=== PATIENT | male | born 1970 | race Two or more races ===

== ENCOUNTER 2018-07-08 22:10 | Emergency (ER) | payer SELFPAY ==
[2018-07-09] MEDS ORDERED: KETOROLAC TROMETHAMINE 60 MG/2 ML SDV IM ONE (00:10)
--- NOTE | 2018-07-09 01:05 | RADIOLOGY REPORT (SQ) ---
EXAM DESCRIPTION: US SCROTUM COMPLETED DATE/TME: 07/08/2018 22:53 CLINICAL HISTORY: 47 years Male, testicular pain Comparison: None. LIMITATIONS: FINDINGS: 5.7 x 5.2 x 2.7 cm enlarged right epididymis with increased vascularity and heterogeneity. Moderate right hydrocele. Else, 5.2-cm right testis, 5.1-cm left testis, left epididymis, and scrotal structures appear otherwise unremarkable in size, shape, echotexture, and vascularity. No evidence of testicular mass. No evidence of testicular torsion IMPRESSION: 1. Right epididymitis. Moderate right hydrocele. Differential etiologies include infectious, inflammatory, and neoplastic processes. 2. Normal testes.
[2018-07-09] MEDS ORDERED: NORMAL SALINE 1000 ML 1,000 ML IV ONE (01:40)
[2018-07-09] MEDS ORDERED: ONDANSETRON HCL INJ/PF 4 MG/2 ML SDV IV ONE (01:40)
[2018-07-09] MEDS ORDERED: CIPROFLOXACIN HCL 500 MG TABLET PO ONE (01:42)
[2018-07-09] MEDS ORDERED: CEFTRIAXONE INJ 1000 MG VIAL IV ONE (01:48)
[2018-07-09] MEDS ORDERED: ONDANSETRON ODT 4 MG TAB (6 TAB/ER DISP) PO PRN (01:48)
[2018-07-09] MEDS ORDERED: HYDROCODONE/ACETAMINOPHEN 5-325 MG (6 TAB/ER DISP) PO PRN (01:48)
--- NOTE | 2018-07-09 01:48 | ER Document Report ---
ED General - General Chief Complaint: Testicular Pain Stated Complaint: TESTICULAR PAIN Time Seen by Provider: 07/08/18 23:17 Notes: Patient is a 47-year-old male with a past medical history of asthma, prior history of right-sided epididymitis 2 years ago who presents complaining of 2 weeks of right-sided testicular pain that became acutely much worse in the last several hours. Describes it as a severe, throbbing, constant pain to the right testicle that radiates into the right lower abdomen. Notes associated nausea without vomiting. Nothing improves the pain. Touching the area or walking worsens the pain. No fever or constitutional symptoms. Denies dysuria. Denies risks for sexually transmitted infections. Has not seen his primary care doctor regarding today's concerns. TRAVEL OUTSIDE OF THE [place] IN LAST 30 DAYS: No - Related Data Allergies/Adverse Reactions: No Known Allergies Allergy (Verified 07/09/18 02:38) Past Medical History - General Information source: Patient - Social History Smoking Status: Current Every Day Smoker Frequency of alcohol use: None Drug Abuse: None Lives with: Spouse/Significant other Family History: Reviewed & Not Pertinent Review of Systems - Review of Systems Notes: Constitutional: Negative for fever. HENT: Negative for sore throat. Eyes: Negative for visual changes. Cardiovascular: Negative for chest pain. Respiratory: Negative for shortness of breath. Gastrointestinal: Negative for abdominal pain, vomiting or diarrhea. Genitourinary: Positive for right testicular pain Musculoskeletal: Negative for back pain. Skin: Negative for rash. Neurological: Negative for headaches, weakness or numbness. 10 point ROS negative except as marked above and in HPI. Physical Exam - Vital signs Vitals: Temp Pulse Resp BP Pulse Ox 98.4 F 84 16 116/69 100 07/08/18 22:17 07/08/18 22:17 07/08/18 22:17 07/08/18 22:17 07/08/18 22:17 Interpretation: Normal Notes: PHYSICAL EXAMINATION: GENERAL: Appears quite uncomfortable HEAD: Atraumatic, normocephalic. EYES: Pupils equal round and reactive to light, extraocular movements intact, sclera anicteric, conjunctiva are normal. ENT: nares patent, oropharynx clear without exudates. Moderately dry mucous membranes. NECK: Normal range of motion, supple without lymphadenopathy LUNGS: Breath sounds clear to auscultation bilaterally and equal. No wheezes rales or rhonchi. HEART: Regular rate and rhythm without murmurs ABDOMEN: Soft, nontender, normoactive bowel sounds. No guarding, no rebound. No masses appreciated. : There is firmness and swelling to the right epididymis. Slight induration of the right scrotum. Cremasteric reflex is intact. EXTREMITIES: Normal range of motion, no pitting or edema. No cyanosis. NEUROLOGICAL: No focal neurological deficits. Moves all extremities spontaneously and on command. PSYCH: Moderately anxious SKIN: Warm, Dry, normal turgor, no rashes or lesions noted. Course - Re-evaluation Re-evalutation: 07/09/18 01:46 Patient presents with signs and symptoms as well as an ultrasound consistent with acute epididymitis. The patient has a visibly indurated and painful epididymis on the right side. Testicular ultrasound without evidence of torsion on the right, does confirm findings of epididymitis. Abdominal exam otherwise benign. Patient did have minimal pain control with intramuscular Toradol. He has also been unable to urinate. Declined catheterization. Will place IV, give IV fluids, morphine, Zofran and wait to obtain urine specimen. Patient will be started on ciprofloxacin for 2 weeks. A dose of ceftriaxone has also been administered. At this time will discharge with return precautions and follow-up recommendations. Verbal discharge instructions given a the bedside and opportunity for questions given. Medication warnings reviewed. Patient is in agreement with this plan and has verbalized understanding of return precautions and the need for urology follow-up in the next 24-72 hours. - Vital Signs Vital signs: Temp Pulse Resp BP Pulse Ox 98.4 F 84 16 116/69 100 07/08/18 22:17 07/08/18 22:17 07/08/18 22:17 07/08/18 22:17 07/08/18 22:17 - Diagnostic Test Radiology reviewed: Reports reviewed Discharge - Discharge Clinical Impression: Epididymitis, right, Right testicular pain, Nausea Condition: Good Disposition: HOME, SELF-CARE Additional Instructions: You have been seen today for pain in your testicle. Your pain is coming from inflammation and possibly an infection of your epididymis which is a structure that sits on top of your testicle. Your urine is being cultured to detect any evidence of infection. Please take the antibiotics as prescribed until completed. For your pain: Take ibuprofen 600 mg and acetaminophen 650 mg every 6 hours together as needed for pain. Take 1 of the Norman tablets with which you have been sent home every 4 hours for pain not controlled by the above regimen. You may also apply a cool compress to the affected area. Return to the emergency department immediately if you have worsening of your pain, develop a fever of greater than 100.4 F, become unable to urinate, has spreading redness on your thigh or pelvic region, pass out, or have any other new or worrisome symptoms. Please follow-up with urology within the next 2-3 days. Prescriptions: Ciprofloxacin HCl [Cipro 500 mg Tablet] 500 mg PO BID #20 tablet
[2018-07-09] MEDS: MORPHINE SULFATE 10 MG/ML INJ IV PRN ×2 (02:15→03:45)
[2018-07-09] MEDS ORDERED: ONDANSETRON HCL INJ/PF 4 MG/2 ML SDV ONE (03:43)
[2018-07-09 03:45] LABS: APPEARANCE,URINE TURBID; BILIRUBIN,URINE SMALL (NEGATIVE); COLOR,URINE YELLOW; GLUCOSE, URINE NEGATIVE (NEGATIVE); KETONES,URINE TRACE mg/dL (NEGATIVE); LEUKOCYTE ESTERASE,URINE TRACE (NEGATIVE); NITRITE,URINE NEGATIVE (NEGATIVE); PROTEIN,URINE 30 mg/dL (NEGATIVE); URINE SPECIFIC GRAVITY 1.034
[2018-07-09 04:15] VITALS: BP 110/67
== END 2018-07-09 04:15 | disposition home or self-care (01) ==
LOC: ER 22:10
DX: N45.1 Epididymitis (principal); N50.811 Right testicular pain; R11.0 Nausea; J45.909 Unspecified asthma, uncomplicated; F17.200 Nicotine dependence, unspecified, uncomplicated
CPT/HCPCS: 96376; 99284; 96372; 96361; 96375; 96365; 87086; 81001; 76870; 93976; J1885; J2270; J0696; J2405; J7030

== ENCOUNTER → 2019-04-04 | Outpatient (CLI) | payer MEDICAID ==
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
== END ==
LOC: RAD 07:49
PROVIDERS: ATTEND Nurse Practitioner Family
DX: G44.52 New daily persistent headache (NDPH) (principal); R40.4 Transient alteration of awareness
CPT/HCPCS: 70553; A9576

== ENCOUNTER 2019-04-29 16:00 | Emergency (ER) | payer OTHER, MEDICAID ==
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
[2019-04-29] MEDS ORDERED: HYDROCODONE/ACETAMINOPHEN 5-325 MG TABLET PO ONE (17:36)
[2019-04-29 17:37] LABS: APPEARANCE,URINE CLEAR; BILIRUBIN,URINE NEGATIVE (NEGATIVE); COLOR,URINE STRAW; GLUCOSE, URINE NEGATIVE (NEGATIVE); KETONES,URINE NEGATIVE (NEGATIVE); PROTEIN,URINE NEGATIVE (NEGATIVE); URINE SPECIFIC GRAVITY 1.006; UROBILINOGEN,URINE NEGATIVE mg/dL (<2.0)
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
[2019-04-29 19:44] VITALS: BP 138/62
== END 2019-04-29 19:41 | disposition home or self-care (01) ==
LOC: ER 16:00
DX: S13.4XXA Sprain of ligaments of cervical spine, initial encounter (principal); M54.2 Cervicalgia; M54.9 Dorsalgia, unspecified; M54.5 Low back pain; M25.519 Pain in unspecified shoulder; V87.7XXA Person injured in collision between other specified motor vehicles (traffic), initial encounter; F17.210 Nicotine dependence, cigarettes, uncomplicated
CPT/HCPCS: 71046; 72050; 72110; 76770; 81001; 99284

== ENCOUNTER 2019-08-30 16:52 | Emergency (ER) | payer MEDICAID, OTHER ==
[2019-08-30] MEDS ORDERED: PREDNISONE 20 MG TABLET PO ONE (19:34)
[2019-08-30] MEDS ORDERED: ALBUTEROL SULFATE 0.083% NEB 2.5 MG/3 ML AMPUL NEB ONE (19:34)
--- NOTE | 2019-08-30 19:44 | RADIOLOGY REPORT (SQ) ---
EXAM DESCRIPTION: CHEST SINGLE VIEW IMAGES COMPLETED DATE/TIME: 08/30/2019 7:33 pm REASON FOR STUDY: shortness of breath COMPARISON: 04/29/2019 EXAM PARAMETERS: NUMBER OF VIEWS: One view. TECHNIQUE: Single frontal radiographic view of the chest acquired. RADIATION DOSE: NA LIMITATIONS: None. FINDINGS: LUNGS AND PLEURA: Hyperexpansion of the lungs. There is no infiltrate, effusion, or mass. MEDIASTINUM AND HILAR STRUCTURES: No masses. Contour normal. HEART AND VASCULAR STRUCTURES: Heart normal in size. Normal vasculature. BONES: No acute findings. HARDWARE: None in the chest. OTHER: No other significant finding. IMPRESSION: Chronic lung changes with no acute cardiopulmonary findings. TECHNICAL DOCUMENTATION: JOB ID: [id number] 2010 [employer]- All Rights Reserved Reading location - IP/workstation name: [email or web address]
--- NOTE | 2019-08-30 20:09 | ER Document Report ---
ED General - General Chief Complaint: Shortness Of Breath Stated Complaint: SHORTNESS OF BREATH Time Seen by Provider: 08/30/19 19:05 Primary Care Provider: XAVIER HUBBARD NP [Primary Care Provider] - Follow up as needed Information source: Patient Notes: 48-year-old male history of intermittent asthma presents with 3 days of gradual onset gradually worsening dry cough and shortness of breath associated with diffuse chest wall pain brought about by coughing not present when not coughing. Patient has been taking his normal Symbicort and has taken albuterol twice daily with transient relief. Patient denies any fever, sick contacts, known coronavirus exposures, vomiting diarrhea, dizziness syncope, recent hospitalizations, recent antibiotics, prior medical evaluation, PE DVT history, family hypercoagulability history, lower extremity edema, recent travel/immobilization/surgery, cancer history. TRAVEL OUTSIDE OF THE [place] IN LAST 30 DAYS: No - Related Data Allergies/Adverse Reactions: No Known Allergies Allergy (Verified 07/09/18 02:38) Past Medical History - Social History Smoking Status: Unknown if Ever Smoked Frequency of alcohol use: None Drug Abuse: None Family History: Reviewed & Not Pertinent Patient has suicidal ideation: No Patient has homicidal ideation: No Pulmonary Medical History: Reports: Hx Asthma Renal/ Medical History: Denies: Hx Peritoneal Dialysis Review of Systems - Review of Systems Notes: REVIEW OF SYSTEMS: CONSTITUTIONAL : Denies fever, chills, or sweats. EENT: Denies recent sinus symptoms, denies throat pain CARDIOVASCULAR: Endorses chest pain, [place] RESPIRATORY: +cough, +shortness of breath. GASTROINTESTINAL: Denies abdominal pain, nausea/vomiting. GENITOURINARY: Denies difficulty urinating, painful urination. FEMALE GENITOURINARY: Denies abnormal vaginal bleeding, vaginal discharge. MUSCULOSKELETAL: Denies neck pain, back pain. SKIN: Denies rash or skin lesions. HEMATOLOGIC : Denies easy bruising or bleeding. LYMPHATIC: Denies swollen, enlarged glands. NEUROLOGICAL: Denies headache, denies change in gait. PSYCHIATRIC: Denies anxiety or stress or depression. Physical Exam - Vital signs Vitals: Temp Pulse Resp BP Pulse Ox 97.5 F 78 16 126/90 H 99 08/30/19 18:20 08/30/19 18:20 08/30/19 18:20 08/30/19 18:20 08/30/19 18:20 - Notes Notes: PHYSICAL EXAMINATION: GENERAL: Well-appearing, well-nourished and in no acute distress. HEAD: Atraumatic, normocephalic. EYES: Pupils equal round and appropriate constriction, sclera anicteric, conjunctiva are normal. ENT: nares patent, moist mucous membranes. NECK: Normal range of motion, supple without lymphadenopathy LUNGS: Breath sounds clear to auscultation bilaterally and equal with mildly decreased air movement and prolonged expiratory phase HEART: Regular rate and rhythm without murmurs ABDOMEN: Soft, nontender, no guarding, no masses, no CVAT EXTREMITIES: Normal range of motion, no pitting or edema. No cyanosis. NEUROLOGICAL: Awake, alert, conversing appropriately, moves all extremities spontaneously. PSYCH: Normal mood, normal affect. SKIN: Warm, Dry, normal turgor, no rashes or lesions noted. Course - Re-evaluation Re-evalutation: 08/30/19 20:08 Presentation consistent with asthma exacerbation secondary to likely URI rule out influenza, rule out coronavirus given patient at high risk for future decompensation given asthma history. Will administer albuterol with a viral filter, continue to have patient on covid precautions in ED, administer prednisone, obtain chest x-ray and flu test, and send coronavirus swab. We will continue to reassess. Chest pain not consistent with ACS and patient PERC negative. No signs of impending respiratory failure, likely discharge. 08/30/19 21:54 Patient feels significantly improved after albuterol and prednisone. Repeat exam shows normal respiratory rate and effort, clear lungs with good air movement, patient expresses relief and thanks that his symptoms have so greatly improved after treatment. Instructed patient to quarantine until covid test results. Gave patient extensive follow-up instructions and return precautions which she demonstrated understanding of. Patient ready for discharge with outpatient course of prednisone, every 4 hours albuterol, and PCP follow-up. - Vital Signs Vital signs: Temp Pulse Resp BP Pulse Ox 97.5 F 78 16 126/90 H 99 08/30/19 18:20 08/30/19 18:20 08/30/19 18:20 08/30/19 18:20 08/30/19 18:20 Discharge - Discharge Clinical Impression: Asthma exacerbation Condition: Good Disposition: HOME, SELF-CARE Additional Instructions: Patient was provided with discharge information including: As a person under investigation for Covid 19, the [facility], division of public health advises you to adhere to the following guidance until your test results are reported to you. If your test result is positive, you will receive additional information from your provider and your local health department at that time. Remain at home until you are cleared by the health provider or public health authorities. Keep a log of visitors to your home, notify any visitors to your home of your isolation status. If you plan to move to a new address or leave the county, notify the local health department in your County. Call your doctor or seek care if you have an urgent medical need. Before seeking medical care, call ahead to get instructions from the provider before arriving at the medical office clinic or hospital. Notify them that you are being tested for the virus that causes Covid 19 so that arrangements can be made, as necessary, to prevent transmission to others in the healthcare setting. Next, notify the local health department in your county. If a medical emergency arises and you need to call 911, inform the first responders that you are being tested for the virus that causes Covid 19. Next, notify the local health department in your county. Turn to ED immediately if you have worsening symptoms including shortness of breath, dizziness, syncope. Take albuterol 2 puffs every 4 hours for next 3 days then every 4 hours as needed and take all prednisone as prescribed. Follow-up with your primary doctor within 4 days. Prescriptions: Prednisone [Deltasone 20 mg Tablet] 2 tab PO DAILY 4 Days tablet Referrals: XAVIER HUBBARD NP [Primary Care Provider] - Follow up as needed
[2019-08-30 20:49] LABS: A TYPE INFLUENZA AG NEGATIVE (NEGATIVE); B INFLUENZA AG NEGATIVE (NEGATIVE)
[2019-08-30 23:17] VITALS: BP 106/71
== END 2019-08-30 22:45 | disposition home or self-care (01) ==
LOC: ER 16:52
DX: J45.901 Unspecified asthma with (acute) exacerbation (principal)
CPT/HCPCS: 94640; 99285; 87635; 87804; 71045; J7512

== ENCOUNTER 2019-11-12 21:10 | Emergency (ER) | payer MEDICAID, OTHER ==
[2019-11-12] MEDS ORDERED: IBUPROFEN 600 MG TABLET PO ONE (23:05)
--- NOTE | 2019-11-12 23:09 | ER Document Report ---
ED Fever - General Chief Complaint: Fever Stated Complaint: FEVER Time Seen by Provider: 11/12/19 22:51 Primary Care Provider: XAVIER HUBBARD NP [Primary Care Provider] - Follow up as needed Notes: Patient is a 49-year-old male who comes to the emergency department for chief complaint of fever for the past 3 days. He states he feels weak, he has body aches, he states he is getting intermittent sensation of "tightness across my scalp" but he denies a specific headache, he denies neck stiffness. He denies shortness of breath or chest pain, denies cough, denies vomiting or abdominal pain. He states when he eats shortly after he will get loose stools but he denies loose stools otherwise, he denies recent travel, sick contacts, suspicious foods. He has asthma and is on albuterol and Symbicort, he smokes, he denies any daily medications otherwise he, he denies any other diagnosed past medical history. TRAVEL OUTSIDE OF THE [place] IN LAST 30 DAYS: No - Related Data Allergies/Adverse Reactions: No Known Allergies Allergy (Verified 11/12/19 21:34) Past Medical History - General Information source: Patient - Social History Smoking Status: Current Some Day Smoker Frequency of alcohol use: None Drug Abuse: None Lives with: Family Family History: Reviewed & Not Pertinent Patient has homicidal ideation: No Pulmonary Medical History: Reports: Hx Asthma Renal/ Medical History: Denies: Hx Peritoneal Dialysis - Immunizations Immunizations up to date: Yes Hx Diphtheria, Pertussis, Tetanus Vaccination: Yes Review of Systems - Review of Systems Constitutional: See HPI EENT: No symptoms reported Cardiovascular: No symptoms reported Respiratory: No symptoms reported Gastrointestinal: See HPI Genitourinary: No symptoms reported Male Genitourinary: No symptoms reported Musculoskeletal: No symptoms reported Skin: No symptoms reported Hematologic/Lymphatic: No symptoms reported Neurological/Psychological: No symptoms reported Physical Exam - Vital signs Vitals: Temp Pulse Resp BP Pulse Ox 100.3 F 98 16 143/96 H 100 11/12/19 21:16 11/12/19 21:16 11/12/19 21:16 11/12/19 21:16 11/12/19 21:16 - Notes Notes: GENERAL: Patient is slightly ill-appearing although he is not toxic in appearance. He is alert and conversational. He does not appear to be in distress HEAD: Normocephalic, atraumatic. EYES: Pupils equal, round, and reactive to light. Extraocular movements intact. ENT: Oral mucosa moist, tongue midline. Oropharynx unremarkable. Airway patent. Nares patent, sinuses non-tender, ear canals unremarkable, TM's intact. NECK: Full range of motion. Supple. Trachea midline. No lymphadenopathy. No nuchal rigidity. LUNGS: Clear to auscultation bilaterally, no wheezes, rales, or rhonchi. No respiratory distress. Non-tender chest wall. HEART: Regular rate and rhythm. No murmur ABDOMEN: Soft, non-tender. Non-distended. Bowel sounds present in all 4 quadrants. GENITOURINARY: Deferred EXTREMITIES: Moves all 4 extremities spontaneously. No edema, normal radial and dorsalis pedis pulses bilaterally. No cyanosis. BACK: no cervical, thoracic, lumbar midline tenderness. No saddle anesthesia, normal distal neurovascular exam. Moves all extremities in full range of motion. NEUROLOGICAL: Alert and oriented x3. Normal speech. Cranial nerves II through XII grossly intact. Strength 5/5 in all extremities. PSYCH: Normal affect, normal mood. SKIN: Warm and flushed Course - Re-evaluation Re-evalutation: Patient is slightly ill-appearing, flushed, however he is not toxic in appearance and his vital signs are unremarkable except for low-grade fever. He is not hypoxic, his lungs are clear, he has no nuchal rigidity or headache, his abdomen is soft and benign. CBC, chemistry unremarkable. Chest x-ray shows slightly strange appearing right upper lobe pneumonia. I suspect walking pneumonia with an atypical pneumonia although I did discuss the case with Dr. Aragon, he does recommend CT imaging to rule out any underlying concerning abnormality especially in the setting of patient's long-term smoking history. I discussed the results with patient, discussed primary care follow-up for CT versus imaging now, patient is strongly requesting imaging now for further evaluation. CTA was performed, also shows pneumonia, no mass, no pulmonary embolus, no concerning findings otherwise. Blood cultures were obtained, patient started on antibiotics, patient tested for COVID-19. Patient has no fever, no complaints on my reevaluation, is well-appearing. Patient will be discharged with return precautions which were discussed at length. Patient states appreciation and agreement. - Vital Signs Vital signs: Temp Pulse Resp BP Pulse Ox 97.3 F 72 18 92/73 L 96 11/13/19 03:35 11/13/19 03:35 11/13/19 03:35 11/13/19 03:35 11/13/19 03:35 - Laboratory Result Diagrams: 11/12/19 23:17 11/12/19 23:17 Laboratory results interpreted by me: 11/12/19 11/12/19 23:17 23:17 RDW 14.5 H Sandoval % (Auto) 16.6 H Eos % (Auto) 6.2 H Sodium 135.7 L Glucose 122 H Discharge - Discharge Clinical Impression: Body aches Pneumonia Qualifiers: Pneumonia type: due to unspecified organism Laterality: right Lung location: upper lobe of lung Qualified Code(s): J18.9 - Pneumonia, unspecified organism Fever Qualifiers: Fever type: unspecified Qualified Code(s): R50.9 - Fever, unspecified Condition: Stable Disposition: HOME, SELF-CARE Additional Instructions: Your chest x-ray and also your CAT scan show pneumonia but no other concerning findings. Take the antibiotics as prescribed until they are gone. You can take 1000 mg of Tylenol and 600 mg of ibuprofen every 6 hours for body aches, chills, and fever. Drink plenty fluids, use your inhalers, and rest. You have been tested for the coronavirus and we will contact you with the results. Please follow additional instructions listed below. Return if you worsen including difficulty breathing, uncontrolled vomiting, p assing out, or any other concerning or worsening symptoms. As a person under investigation for COVID-19, the [place] Department of [facility] and Human Services (division on public health) advises you to adhere to the following guidance until your test results are reported to you. If your test result is positive, you will receive additional information from your provider and your local health department at that time. Remain at home until you are cleared by the health provider or public health authorities. Keep a log of visitors to your home, notify any visitors to your ome of your isolation status. If you plan to move to a new address or leave the [facility], notify the local health department in your County. Call your Doctor or seek care if you have an urgent medical need. Before seeking medical care, call him to get instructions from the provider before arriving at the medical office, clinic, or hospital. Notify them that you are being tested for the virus (COVID-19) so that arrangements can be made, as necessary, to prevent transmission to others in the healthcare setting. Next, notify the local health department in your county. If a medical emergency arises and you need to call 911, inform the first responders that you are being tested for the virus that causes COVID-19. Next, notify the local health department in your county. Prescriptions: Doxycycline Hyclate [Vibramycin 100 mg Tablet] 100 mg PO BID 10 Days #20 tablet Forms: Return to Work Referrals: XAVIER HUBBARD NP [Primary Care Provider] - Follow up as needed
[2019-11-12 23:25] LABS: ABSOLUTE EOSINOPHILS # (AUTO) 0.3 10^3/uL (0.0-0.6); ABSOLUTE LYMPHOCYTES (AUTO) 1.3 10^3/uL (0.5-4.7); ABSOLUTE MONOCYTES (AUTO) 0.7 10^3/uL (0.1-1.4); BASOPHILS % (AUTO) 0.9 % (0-2); EOSINOPHILS % (AUTO) 6.2 % (0-6); HEMATOCRIT 40.4 % (37.9-51.0); HEMOGLOBIN 13.5 g/dL (13.5-17.0); LYMPHOCYTES % (AUTO) 30.2 % (13-45); MEAN CORPUSCULAR HEMOGLOBIN 28.3 pg (27.0-33.4); MEAN CORPUSCULAR HGB CONC 33.5 g/dL (32.0-36.0); MEAN CORPUSCULAR VOLUME 84 fl (80-97); MONOCYTES % (AUTO) 16.6 % (3-13); PLATELET COUNT 233 10^3/uL (150-450); RED BLOOD COUNT 4.79 10^6/uL (4.35-5.55); RED CELL DISTRIBUTION WIDTH 14.5 % (11.5-14.0); SEGMENTED NEUTROPHILS % (AUTO) 46.1 % (42-78); TOTAL CELLS COUNTED % (AUTO) 100 %; WHITE BLOOD COUNT 4.4 10^3/uL (4.0-10.5)
[2019-11-12 23:45] LABS: ALBUMIN 4.1 g/dL (3.5-5.0); ALKALINE PHOSPHATASE 82 U/L (38-126); ANION GAP 6 (5-19); ASPARTATE AMINO TRANSFERASE 27 U/L (17-59); BILIRUBIN,TOTAL 0.2 mg/dL (0.2-1.3); BLOOD UREA NITROGEN 12 mg/dL (7-20); CALCIUM 9.4 mg/dL (8.4-10.2); CARBON DIOXIDE 28 mmol/L (22-30); CHLORIDE 102 mmol/L (98-107); GLUCOSE 122 mg/dL (75-110); POTASSIUM 4.3 mmol/L (3.6-5.0)
--- NOTE | 2019-11-13 00:32 | RADIOLOGY REPORT (SQ) ---
EXAM DESCRIPTION: XR CHEST 1 VIEW COMPLETED DATE/TME: 11/12/2019 23:04 CLINICAL INDICATION: 49-year-old male with fever for three days. Weakness. TECHNIQUE: Single view, AP portable chest was obtained. COMPARISON: 08/30/2019. FINDINGS: Unremarkable cardiac and mediastinal silhouette. Heart size is normal. Opacification of the RIGHT upper lobe compatible with consolidation/pneumonia. Remaining lungs are otherwise clear without focal opacity, pneumothorax or pleural effusions. Large lung volumes raise the possibility of chronic obstructive pulmonary disease. The visualized bones are within normal limits. IMPRESSION: Opacification of the RIGHT upper lobe compatible with consolidation/pneumonia. Please correlate with patient clinical findings and follow-up for resolution.
[2019-11-13] MEDS ORDERED: CEFTRIAXONE 1 GM/D5W RTU 1 GM/50 ML RTUPB IV ONE (00:51)
--- NOTE | 2019-11-13 02:40 | RADIOLOGY REPORT (SQ) ---
CLINICAL INDICATION: abnormal CXR, smoker. Airspace disease right upper lobe. TECHNIQUE: CT arteriography was obtained of the chest with multiplanar MIP and/or 3-D angiographic reconstructions. This exam was performed according to our departmental dose-optimization program, which includes automated exposure control, adjustment of the mA and/or kV according to patient size and/or use of iterative reconstruction techniques. COMPARISON: None. CORRELATION: None. FINDINGS: Adequate contrast bolus. Average Hounsfield unit measurement within main pulmonary artery segment of 548. Artifact from venous opacification. There is no evidence of pulmonary embolus. Thoracic aorta is of normal caliber. The heart is of normal size. No pericardial effusion. No bulky mediastinal adenopathy. The lungs demonstrate patchy airspace consolidative change posterior segment right upper lobe. Presumed infectious inflammatory. Visualized abdominal contents are unremarkable. Visualized bones are unremarkable. IMPRESSION: No evidence of pulmonary embolus. Airspace consolidative change right upper lobe, likely pneumonia .
[2019-11-13] MEDS ORDERED: DOXYCYCLINE HYCLATE 100 MG TABLET PO ONE (02:48)
[2019-11-13 03:36] VITALS: BP 92/73
== END 2019-11-13 03:36 | disposition home or self-care (01) ==
LOC: ER 21:10
DX: J18.9 Pneumonia, unspecified organism (principal); R50.9 Fever, unspecified; M79.10 Myalgia, unspecified site; R53.1 Weakness; R20.0 Anesthesia of skin; R19.7 Diarrhea, unspecified; J45.909 Unspecified asthma, uncomplicated; Z79.899 Other long term (current) drug therapy; F17.200 Nicotine dependence, unspecified, uncomplicated; Z20.828 Contact with and (suspected) exposure to other viral communicable diseases
CPT/HCPCS: 99284; 96365; 36415; 87040; 85025; 87635; 80053; 71045; 71275; J3490 ×2; J0696; C9803